=== PATIENT | female | born 1965 | race African-American/Black ===

== ENCOUNTER 2020-08-20 21:52 | Emergency (ER) | payer BC ==
[2020-08-20] MEDS ORDERED: Acetaminophen 500 MG TAB ONE (22:25)
[2020-08-20] MEDS ORDERED: Ketorolac Tromethamine 30 MG/ML VIAL ONE (22:25)
[2020-08-20 22:35] LABS: #Basophils 0.1 10x3/uL (0.0-0.2); #Eosinphils 0.4 10x3/uL (0.0-0.5); #Monocytes 0.5 10x3/uL (0.0-1.1); #Neutrophils 2.6 10x3/uL (1.5-8.4); %Basophils 0.9 % (0.0-2.0); %Eosinophils 4.7 % (0.0-6.0); %Lymphocytes 53.3 % (18.0-47.0); %Monocytes 6.3 % (0.0-10.0); %Neutrophils 34.5 % (40.0-75.0); Hemoglobin 13.2 g/dL (12.0-15.5); Mean Corpuscular HGB CONC 32.4 g/dL (32.0-36.0); Mean Corpuscular Hemoglobin 28.8 pg (27.0-33.0); Mean Corpuscular Volume 88.9 fl (81.6-98.3); Mean Platelet Volume 9.8 fl (7.4-10.4); Platelet Count 425 10x3/uL (150-450); RBC Distribution Width 13.2 % (11.5-14.5); Red Blood Cell (RBC) Count 4.59 10x6/uL (3.90-5.03); White Blood Cell (WBC) Count 7.5 10x3/uL (3.5-10.5)
[2020-08-20 22:43] LABS: ALT (SGPT) 14 U/L (8-55); AST (SGOT) 19 U/L (5-34); Albumin 4.5 g/dL (3.5-5.0); Alkaline Phosphatase 93 U/L (40-110); Anion Gap 15 mmol/L (10-20); BUN (Urea Nitrogen) 13 mg/dL (9.8-20.1); Bilirubin, Total 0.3 mg/dL (0.2-1.2); Calc. Creatinine Clearance 0 mL/min (70-130); Calcium 9.7 mg/dL (7.8-10.44); Carbon Dioxide 26 mmol/L (22-29); Chloride 104 mmol/L (98-107); Globulin 3.5 g/dL (2.4-3.5); Glucose 99 mg/dL (70-105); Sodium 142 mmol/L (136-145)
== END 2020-08-20 23:30 | disposition home or self-care (01) ==
LOC: CSHERS 21:52
DX: M25.512 Pain in left shoulder (principal); E78.5 Hyperlipidemia, unspecified; I10 Essential (primary) hypertension; Z79.899 Other long term (current) drug therapy
CPT/HCPCS: 71045; 80053; 84484; 85025; 93005; 96372; J1885

== ENCOUNTER 2024-02-16 14:52 | Observation (INO) | payer BC ==
[2024-02-16 16:31] VITALS: BMI 22.8
[2024-02-16] MEDS ORDERED: Ipratropium/Albuterol 3 ML NEB NEB PRN (16:39)
[2024-02-16] MEDS ORDERED: hydrALAZINE 20 MG/ML VIAL SLOW IVP PRN (16:39)
[2024-02-16] MEDS ORDERED: Promethazine HCl 25 MG/ML VIAL IM PRN (16:39)
[2024-02-16] MEDS ORDERED: Dextrose 5% in Water 1,000 ML IV PRN (16:39)
[2024-02-16] MEDS ORDERED: Dextrose 50% Abboject 50 ML SYRINGE SLOW IVP PRN (16:39)
[2024-02-16] MEDS ORDERED: Glucagon 1 MG/ML KIT IM PRN (16:39)
[2024-02-16] MEDS ORDERED: FLU (Fluarix Triv) TS24-25(6MOS UP)/PF 45 MCG/0.5 ML Syringe IM ONE (18:15)
[2024-02-16] MEDS: D5 1/2 NS w/20 mEq KCL 1,000 ML IV SCH (18:40)
[2024-02-16] MEDS: Hydrochlorothiazide 25 MG TAB PO SCH (20:35)
[2024-02-16] MEDS: Famotidine/PF 20 mg/2ml Vial SLOW IVP SCH (20:36)
[2024-02-16] MEDS: Losartan 50 MG TAB PO SCH (20:36)
[2024-02-17] MEDS: Morphine 2 MG/ML VIAL SLOW IVP PRN (00:45)
[2024-02-17] MEDS: Ondansetron PF 4 MG/2 ML Vial IVP PRN (00:55)
[2024-02-17 03:57] LABS: #Basophils 0.04 10x3/uL (0.0-0.2); #Eosinophils 0.22 10x3/uL (0.0-0.5); #Monocytes 0.56 10x3/uL (0.0-1.1); #Neutrophils 1.81 10x3/uL (1.5-8.4); %Basophils 0.8 % (0.0-2.0); %Eosinophils 4.3 % (0.0-6.0); %Lymphocytes 48.9 % (18.0-47.0); %Monocytes 10.9 % (0.0-10.0); %Neutrophils 35.1 % (40.0-75.0); Hematocrit 34.7 % (34.9-44.5); Hemoglobin 11.4 g/dL (12.0-15.5); Mean Corpuscular HGB CONC 32.9 g/dL (32.0-36.0); Mean Corpuscular Hemoglobin 28.9 pg (27.0-33.0); Mean Corpuscular Volume 87.8 fL (81.6-98.3); Mean Platelet Volume 10.2 fL (7.4-10.4); Platelet Count 370 10x3/uL (150-450); Red Blood Cell (RBC) Count 3.95 10x6/uL (3.90-5.03); White Blood Cell (WBC) Count 5.2 10x3/uL (3.5-10.5)
[2024-02-17 03:58] LABS: Anion Gap 12 mmol/L (10-20); BUN (Urea Nitrogen) 9 mg/dL (9.8-20.1); Calc. Creatinine Clearance 73 mL/min (70-130); Calcium 8.9 mg/dL (7.8-10.44); Carbon Dioxide 22 mmol/L (22-29); Chloride 108 mmol/L (98-107); Estimated GFR 87; Glucose 106 mg/dL (70-105); Potassium 3.2 mmol/L (3.5-5.1); Sodium 139 mmol/L (136-145)
[2024-02-17] MEDS: Enoxaparin 40 MG (0.4 mL) SYRINGE SC SCH (08:16)
[2024-02-17 10:35] VITALS: BMI 22.8
[2024-02-17 13:54] VITALS: BP 139/77; TEMP 97.7
== END 2024-02-17 15:10 | disposition home or self-care (01) ==
LOC: CSHTELE 15:34 → INTOOBSV 15:34
PROVIDERS: ADMIT Surgery; ATTEND Surgery
DX: K56.609 Unspecified intestinal obstruction, unspecified as to partial versus complete obstruction (principal); Z98.51 Tubal ligation status; Z90.710 Acquired absence of both cervix and uterus
CPT/HCPCS: 36415; 74250; 80048; 85025; 94760; 94762; 96372; 96374; 96375; 96376; G0378; J1650; J2272; J2405; J3480; J3490